=== PATIENT | female | born 1980 | race Caucasian/White ===

== ENCOUNTER → 2016-11-08 | Outpatient (CLI) | payer MEDICAID ==
--- NOTE | 2016-11-08 11:13 | MM ---
Reason for exam: clinical finding. Last mammogram was performed 1 year and 2 months ago. Physical Findings: Nurse Summary: 0.5cm nodule in the right breast at 12 o'clock, 4 o'clock and 9 o'clock, 0.5cm nodule in the left breast at 11 o'clock, 12 o'clock, 1 o'clock and 4 o'clock (nurse kp). MG Diagnostic Mammo w CAD [facility]O Bilateral CC and MLO view(s) were taken. LM view(s) were taken of the right breast. Prior study comparison: August 29, 2015, bilateral MG screening mammo w CAD. The breast tissue is extremely dense which could obscure a lesion on mammography. Finding: There are intermediate concern, suspicious heterogeneous, grouped/clustered calcifications in the outer quadrant, middle position of the right breast, 4 cm from the nipple, seen on CC view only. New finding since August 29, 2015. These results were verbally communicated with the patient and result sheet given to the patient on 11/08/16. ASSESSMENT: Suspicious, BI-RAD 4 RECOMMENDATION: Surgical consultation and stereotactic core biopsy of the right breast. Called Jose with mammographic findings and office will call patient and discuss results and set patient up for procedure/surgical consult. PRELIMINARY REPORT CALLED AND FAXED TO DR. HUNTER ON 11/08/16 AT 1200/TMP.
--- NOTE | 2016-11-08 11:23 | USB ---
Reason for exam: clinical finding. US Breast BILAT Right breast ultrasound includes all four quadrants, the retroareolar region and axilla. Finding demonstrates a 2.6 x 0.6 x 2.3cm at 12 o'clock cystic cluster at 12 o'clock, a 0.9 x 0.9 x 1.0cm cystic lesion at 2 o'clock, a 1.1 x 0.5 x 0.7cm cystic cluster at 3 o'clock, a 4.1 x 0.7 x 3.5cm cystic lesion at 8 o'clock and a 1.2 x 0.6 x 0.9cm cystic lesion at 10 o'clock. Left breast ultrasound includes all four quadrants, the retroareolar region and axilla. Finding demonstrates a 0.6 x 0.5 x 0.6cm cystic lesion at 12 o'clock, a 1.6 x 1.5 x 1.0cm cystic cluster at 12 o'clock, a 1.1 x 0.7 x 0.3cm cystic lesion at 1 o'clock, a 1.2 x 0.5 x 1.1cm cystic lesion at 3 o'clock and a 0.8 x 0.7 x 0.5cm cystic cluster at 9 o'clock. These results were verbally communicated with the patient and result sheet given to the patient on 11/08/16. ASSESSMENT: Incomplete: need additional imaging evaluation, BI-RAD 0 RECOMMENDATION: Follow-up diagnostic mammogram of both breasts.
== END ==
LOC: RADUSWWP 08:13
PROVIDERS: ATTEND Obstetrics & Gynecology
DX: R92.8 Other abnormal and inconclusive findings on diagnostic imaging of breast (principal); R92.2 Inconclusive mammogram
CPT/HCPCS: 76641; G0204

== ENCOUNTER → 2016-12-03 | Day surgery (SDC) | payer MEDICAID ==
--- NOTE | 2016-12-03 16:53 | MM ---
EXAMINATION TYPE: MG discontinued stereo core RT DATE OF EXAM: 12/03/2016 3:07 PM COMPARISON: 08/29/2015 and 11/08/2016 CLINICAL HISTORY: 36-year-old female referred for stereotactic core needle biopsy of right breast angeles rocalcifications. TECHNIQUE: Stereotactic guided core biopsy of the right breast. FINDINGS: The procedure of stereotactic guided core biopsy was explained to the patient. Benefits, a lternatives, and risks were discussed. An informed consent was then obtained. As the calcifications were noted on the cc view, a CC from above approach was utilized, targeting the lateral calcifications at a middle depth. However, multiple windows were utilized but the small group of microcalcifications could not be redem onstrated on the stereotactic table. Interestingly, numerous layering calcifications now became appar ent in this position. Given the smudgy appearance on the original CC view of 11/08/2016, the possibility of benign milk of c alcium is considered. These should be reassessed in 6 months. Biopsy was discontinued at this time. Findings and impression were discussed with the patient. IMPRESSION: BI-RADS 3-probably benign. Right breast lateral grouped calcifications could not be redemonstrated o n the stereotactic table. Many new layering calcifications became apparent on the nipple down CC view . Milk of calcium is a consideration. RECOMMENDATION: 6 month follow-up diagnostic right breast mammogram.
== END ==
LOC: RADMAMWWP 13:21
PROVIDERS: ATTEND Surgery
DX: R92.8 Other abnormal and inconclusive findings on diagnostic imaging of breast (principal); R92.0 Mammographic microcalcification found on diagnostic imaging of breast; R92.1 Mammographic calcification found on diagnostic imaging of breast; Z53.8 Procedure and treatment not carried out for other reasons

== ENCOUNTER → 2018-05-01 | Outpatient (CLI) | payer MEDICAID ==
--- NOTE | 2018-05-02 08:04 | MM ---
Reason for exam: screening (asymptomatic). Last mammogram was performed 10 months ago. History: MG discontinued stereo core RT of the right breast, December 03, 2016. Took hormonal contraceptives beginning at age 16. Physical Findings: A clinical breast exam by your physician is recommended on an annual basis and results should be correlated with mammographic findings. MG 3D Screening Mammo W/Cad Bilateral CC and MLO view(s) were taken. Prior study comparison: July 03, 2017, right breast MG 3d diag mammo w/cad RT. November 08, 2016, bilateral MG diagnostic mammo w CAD [facility]. The breast tissue is extremely dense which could obscure a lesion on mammography. Finding: There are typically benign round calcifications in both breasts. There is a chronic nodularity bilaterally. Increase in size since July 03, 2017 and November 08, 2016. ASSESSMENT: Incomplete: need additional imaging evaluation, BI-RAD 0 RECOMMENDATION: Ultrasound of the left breast. [facility] will attempt to contact patient to return for ultrasound.
== END ==
LOC: RADMAMWWP 07:21
PROVIDERS: ATTEND Obstetrics & Gynecology
DX: Z12.31 Encounter for screening mammogram for malignant neoplasm of breast (principal)
CPT/HCPCS: 77063; 77067

== ENCOUNTER → 2018-05-16 | Outpatient (CLI) | payer MEDICAID ==
--- NOTE | 2018-05-16 10:50 | USB ---
Reason for exam: additional evaluation requested from abnormal screening. History: MG discontinued stereo core RT of the right breast, December 03, 2016. Took hormonal contraceptives beginning at age 16. Physical Findings: Nurse Summary: bilateral cystic clusters, movable, tender 1cm lump left breast 1 o'clock (nurse mj). US Breast Workup Limited LT Left limited breast ultrasound including focal area of concern, retroareolar and axilla demonstrates a 1.1 x 1.2 x 0.7cm oval, cystic lesion at 12 o'clock, a 0.3 x 0.3 x 0.3cm oval, mixed cluster at 1 o'clock, a 0.5 x 0.4 x 0.4cm oval, cystic cluster at 1 o'clock, a 2.0 x 2.8 x 1.0cm oval, cystic lesion at 2 o'clock, a 1.7 x 1.8 x 0.8cm oval, cystic lesion at 3 o'clock and a 0.8 x 0.9 x 0.8cm oval, cystic lesion at 3 o'clock with calcification adjacent or at wall. These results were verbally communicated with the patient and result sheet given to the patient on 05/16/18. ASSESSMENT: Benign, BI-RAD 2 RECOMMENDATION: Return to routine screening mammogram schedule for both breasts. Manage patient on a clinical basis.
== END ==
LOC: RADUSWWP 06:59
PROVIDERS: ATTEND Obstetrics & Gynecology
DX: R92.8 Other abnormal and inconclusive findings on diagnostic imaging of breast (principal)

== ENCOUNTER → 2019-04-03 | Outpatient (CLI) | payer MEDICAID ==
--- NOTE | 2019-04-05 20:20 | XR ---
EXAMINATION TYPE: XR thoracic spine 2V DATE OF EXAM: 04/03/2019 COMPARISON: NONE HISTORY: 38-year-old female with back pain TECHNIQUE: 3 views FINDINGS: 12 rib-bearing thoracic vertebral bodies. All pedicles are visualized. Mild endplate spondylosis midt horacic spine. Vertebral body heights are preserved and alignment is maintained. IMPRESSION: Mild endplate spondylosis midthoracic spine. No vertebral compression collapse or malalignment.
== END | disposition home or self-care (01) ==
LOC: RADXRMAIN 16:37
PROVIDERS: ATTEND Internal Medicine Geriatric Medicine
DX: M47.814 Spondylosis without myelopathy or radiculopathy, thoracic region (principal)
CPT/HCPCS: 72070

== ENCOUNTER → 2021-03-09 | Outpatient (CLI) | payer MEDICAID ==
--- NOTE | 2021-03-09 11:25 | MM ---
Reason for exam: clinical finding. Last mammogram was performed 2 years and 10 months ago. History: MG discontinued stereo core RT of the right breast, December 03, 2016. Took hormonal contraceptives beginning at age 16. Physical Findings: Nurse Summary: 2cm nodule in the right breast at 9 o'clock and 2 o'clock (nurse dw). MG 3D Diag Mammo W/Cad [facility] Bilateral CC and MLO view(s) were taken. Prior study comparison: May 01, 2018, bilateral MG 3d screening mammo w/cad. July 03, 2017, right breast MG 3d diag mammo w/cad RT. The breast tissue is heterogeneously dense. This may lower the sensitivity of mammography. Stable diffuse punctate calcifications bilaterally. Multiple bilateral masses measuring up to 5cm on the left. Medial right 3.0cm mass at the palpable. These results were verbally communicated with the patient and result sheet given to the patient on 03/09/21. ASSESSMENT: Incomplete: need additional imaging evaluation, BI-RAD 0 RECOMMENDATION: Ultrasound of both breasts.
--- NOTE | 2021-03-09 11:27 | USB ---
Reason for exam: additional evaluation requested from abnormal screening. History: MG discontinued stereo core RT of the right breast, December 03, 2016. Took hormonal contraceptives beginning at age 16. US Breast BILAT Right complete breast ultrasound includes all four quadrants, the retroareolar region and axilla. Finding demonstrates a 2.1 x 1.6 x 2.0cm cystic lesion at 2 o'clock, a 2.6 x 1.5 x 2.3cm cystic lesion at 8 o'clock and a 1.3 x 0.7 x 0.9cm cystic cluster at 8 o'clock. Left complete breast ultrasound includes all four quadrants, the retroareolar region and axilla. Finding demonstrates a 2.9 x 1.4 x 3.4cm cystic lesion at 12 o'clock, a 5.1 x 1.7 x 4.8cm cystic lesion at 3 o'clock and a 2.4 x 0.8 x 2.3cm cystic lesion at 11 o'clock. Multiple cystic areas bilaterally. These results were verbally communicated with the patient and result sheet given to the patient on 03/09/21. ASSESSMENT: Probably benign, BI-RAD 3 RECOMMENDATION: Follow-up diagnostic mammogram of both breasts in 1 year.
== END | disposition home or self-care (01) ==
LOC: RADMAMWWP 08:47
PROVIDERS: ATTEND Obstetrics & Gynecology
DX: Z13.820 Encounter for screening for osteoporosis (principal); I25.2 Old myocardial infarction; R92.8 Other abnormal and inconclusive findings on diagnostic imaging of breast; N63.0 Unspecified lump in unspecified breast
CPT/HCPCS: 77062; 77066

== ENCOUNTER → 2021-06-16 | Outpatient (CLI) | payer MEDICAID ==
[2021-06-16 10:16] LABS: Basophils # (A) 0.04 X 10*3/uL (0.00-0.10); Basophils % (A) 0.4 %; Eosinophils # (A) 0.18 X 10*3/uL (0.04-0.35); Eosinophils % (A) 1.9 %; HGB 11.8 g/dL (12.0-15.0); Lymphocytes # (A) 1.25 X 10*3/uL (0.90-5.00); Lymphocytes % (A) 13.4 %; MCH 28.8 pg (27.0-32.0); MCHC 31.9 g/dL (32.0-37.0); MCV 90.2 fL (80.0-97.0); Mean Platelet Volume 10.5 fL (9.5-12.2); Monocytes # (A) 0.98 X 10*3/uL (0.20-1.00); Monocytes % (A) 10.5 %; Neutrophils # (A) 6.84 X 10*3/uL (1.80-7.70); Neutrophils % (A) 73.6 %; Platelet Count 301 X 10*3/uL (140-440); RDW 14.4 % (11.5-14.5); WBC 9.31 X 10*3/uL (4.50-10.00)
[2021-06-16 14:30] LABS: ALT 12 U/L (8-44); AST 13 U/L (13-35); African American GFR (CKD) 105.4 (60.0-200.0); Albumin 4.5 g/dL (3.8-4.9); Albumin/Globulin Ratio 1.88 (1.60-3.17); Alkaline Phosphatase 69 U/L (41-126); BUN/Creat Ratio 18.88 Ratio (12.00-20.00); Blood Urea Nitrogen 15.1 mg/dL (9.0-27.0); Calcium 9.3 mg/dL (8.7-10.3); Carbon Dioxide 24.5 mmol/L (20.0-27.5); Chloride 102 mmol/L (96-109); Globulin 2.4 g/dL (1.6-3.3); Glucose 83 mg/dL (70-110); Non-African American GFR(CKD) 90.9 (60.0-200.0); Potassium 3.7 mmol/L (3.5-5.5); Sodium 136 mmol/L (135-145); Total Protein 6.9 g/dL (6.2-8.2)
[2021-06-16 14:31] LABS: Chol/HDL Ratio 2.15 Ratio; LDL Cholesterol,Calculated 89.5 mg/dL (0.0-131.0); VLDL Calculation 12.58 mg/dL (5.00-40.00)
== END | disposition home or self-care (01) ==
LOC: LABWHC1 07:30
PROVIDERS: ATTEND Internal Medicine Geriatric Medicine
DX: E78.2 Mixed hyperlipidemia (principal); E55.9 Vitamin D deficiency, unspecified; R53.83 Other fatigue; R73.9 Hyperglycemia, unspecified; R10.9 Unspecified abdominal pain
CPT/HCPCS: 36415; 80053; 80061; 82306; 83036; 84439; 84443; 85025

== ENCOUNTER → 2021-06-16 | Outpatient (CLI) | payer MEDICAID ==
--- NOTE | 2021-06-16 09:14 | US ---
EXAMINATION TYPE: US pelvic complete DATE OF EXAM: 06/16/2021 COMPARISON: NONE CLINICAL HISTORY: R10.2 Pelvic pain. TECHNIQUE: Transabdominal (TA). Transabdominal sonographic images of the pelvis were acquired Date of LMP: Irregular EXAM MEASUREMENTS: Uterus: 8.2x6.6x5.1 cm Endometrial Stripe: 1.0 cm Right Ovary: 4.1x2.2x2.3 cm Left Ovary: 3.6x3.3x2.3 cm 1. Uterus: Anteverted 2 fibroids noted Anterior fundal = 1.2x1.4x1.0cm Posterior = 2.1x1.8x1.3cm 2. Endometrium: wnl 3. Right Ovary: wnl 4. Left Ovary: Cyst with septation =2.2x2.8x1.7cm 5. Bilateral Adnexa: wnl 6. Posterior cul-de-sac: trace amount of fluid Heterogeneous anteverted uterus with technologist marking is slightly hypoechoic 1.4 cm lesion in the anterior fundus suspicious for small subserosal fibroid slightly bulging the uterine contour and sli ghtly larger heterogeneous hypoechoic 2.1 cm fibroid in the posterior fundus intramural in location. Poorly visualized endometrial stripe at 10 mm on image saved #4. Trace free fluid cul-de-sac. Both ovaries seen. Left ovary has 2.2 cm slightly irregular thin-walled cyst or cystic lesion with th in septa is not completely anechoic, possible corpus luteal cyst. IMPRESSION: Suboptimal study without transvaginal investigation, small intrauterine fibroids are iden tified.
== END | disposition home or self-care (01) ==
LOC: RADUSWWP 07:05
PROVIDERS: ATTEND Internal Medicine Geriatric Medicine
DX: R10.2 Pelvic and perineal pain (principal)
CPT/HCPCS: 76856

== ENCOUNTER → 2021-08-22 | Outpatient (CLI) | payer MEDICAID ==
--- NOTE | 2021-08-23 07:31 | XR ---
EXAMINATION TYPE: XR chest 2V DATE OF EXAM: 08/22/2021 COMPARISON: 03/21/2015 HISTORY: Chest pain TECHNIQUE: Frontal and lateral views of the chest are obtained. FINDINGS: There is no focal air space opacity. No evidence for pneumothorax. No pleural effusion. The cardiac silhouette size is within normal limits. The osseous structures are grossly intact. IMPRESSION: 1. No acute cardiopulmonary process.
== END | disposition home or self-care (01) ==
LOC: RADXRMAIN 17:27
PROVIDERS: ATTEND Internal Medicine Geriatric Medicine
DX: R06.02 Shortness of breath (principal); R07.9 Chest pain, unspecified
CPT/HCPCS: 71046

== ENCOUNTER → 2021-11-08 | Outpatient (CLI) | payer MEDICAID ==
--- NOTE | 2021-11-08 16:25 | XR ---
Right hip HISTORY: Pain for 2 months 2 views of the right hip, no comparisons Mild concentric joint space loss noted. Question some minimal marginal spurring. Alignment and bone m ineralization maintained. No fracture or dislocation. IMPRESSION: Mild osteoarthritic changes suspected.
--- NOTE | 2021-11-08 16:26 | XR ---
Lumbar spine HISTORY: M 43.26, pain for 2 months 3 views of lumbar spine Surgical clips are present in the right upper quadrant. Lumbar vertebral bodies show preserved height and alignment. Spondylosis is present and mild. This mi ld loss of disc height at intervertebral levels. IMPRESSION: Mild degenerative disc changes. Consider lumbar MRI.
== END | disposition home or self-care (01) ==
LOC: RADXRMAIN 15:31
PROVIDERS: ATTEND Internal Medicine Geriatric Medicine
DX: M25.559 Pain in unspecified hip (principal); M43.26 Fusion of spine, lumbar region
CPT/HCPCS: 72100; 73502

== ENCOUNTER → 2022-07-24 | Outpatient (CLI) | payer MEDICAID ==
--- NOTE | 2022-07-24 08:21 | XR ---
EXAMINATION TYPE: XR chest 2V DATE OF EXAM: 07/24/2022 COMPARISON: Chest x-ray August 22, 2021 HISTORY: Shortness of breath TECHNIQUE: Frontal and lateral views of the chest are obtained. FINDINGS: There is no suspicious focal air space opacity, pleural effusion, or pneumothorax seen. T he cardiac silhouette size is stable and within normal limits. The osseous structures are intact. C holecystectomy clips are redemonstrated. IMPRESSION: No acute cardiopulmonary process. No significant change from prior.
[2022-07-24 14:29] LABS: Basophils # (A) 0.04 X 10*3/uL (0.00-0.10); Basophils % (A) 0.7 %; Eosinophils # (A) 0.15 X 10*3/uL (0.04-0.35); Eosinophils % (A) 2.8 %; HCT 34.4 % (37.2-46.3); HGB 11.1 g/dL (12.0-15.0); Immature Grans, Automated 0.2 %; Lymphocytes # (A) 1.42 X 10*3/uL (0.90-5.00); Lymphocytes % (A) 26.6 %; MCH 28.8 pg (27.0-32.0); MCHC 32.3 g/dL (32.0-37.0); MCV 89.1 fL (80.0-97.0); Mean Platelet Volume 10.4 fL (9.5-12.2); Monocytes # (A) 0.48 X 10*3/uL (0.20-1.00); NRBC Per 100 WBC 0 /100 WBCS (0.0-0.0); Neutrophils # (A) 3.24 X 10*3/uL (1.80-7.70); Neutrophils % (A) 60.7 %; Platelet Count 338 X 10*3/uL (140-440); RBC 3.86 X 10*6/uL (4.10-5.20); RDW 14.1 % (11.5-14.5); WBC 5.34 X 10*3/uL (4.50-10.00)
[2022-07-24 14:53] LABS: ALT 10 U/L (8-44); AST 16 U/L (13-35); African American GFR (CKD) 108.9 (60.0-200.0); Albumin 4.3 g/dL (3.8-4.9); Albumin/Globulin Ratio 1.63 (1.60-3.17); Alkaline Phosphatase 68 U/L (41-126); BUN/Creat Ratio 14.47 Ratio (12.00-20.00); Blood Urea Nitrogen 11.2 mg/dL (9.0-27.0); Calcium 9.4 mg/dL (8.7-10.3); Carbon Dioxide 24.2 mmol/L (20.0-27.5); Chloride 104 mmol/L (96-109); Chol/HDL Ratio 2.73 Ratio; Globulin 2.7 g/dL (1.6-3.3); Glucose 84 mg/dL (70-110); LDL Cholesterol,Calculated 100.9 mg/dL (0.0-131.0); Potassium 4.2 mmol/L (3.5-5.5); Sodium 140 mmol/L (135-145); Total Bilirubin <0.15 mg/dL (0.30-1.20); VLDL Calculation 17.56 mg/dL (5.00-40.00)
== END | disposition home or self-care (01) ==
LOC: LABWHC1 07:08
PROVIDERS: ATTEND Internal Medicine Geriatric Medicine
DX: E78.2 Mixed hyperlipidemia (principal); R73.9 Hyperglycemia, unspecified; R06.02 Shortness of breath; R53.83 Other fatigue
CPT/HCPCS: 36415; 71046; 80053; 80061; 83036; 84443; 85025

== ENCOUNTER → 2022-10-15 | Outpatient (CLI) | payer MEDICAID ==
--- NOTE | 2022-10-15 07:30 | MM ---
Reason for Exam: Additional evaluation requested from prior study. Last mammogram was performed 1 year(s) and 7 month(s) ago. Patient History: Menarche at age 10. First Full-Term at age 12. Premenopausal. Patient has history of breast feeding. Currently using Hormonal Contraceptives, starting at age 16. 12/03/2016, MG discontinued stereo core RT on the right side. Last menstrual period: 09/26/2022 Risk Values: Madalyn 5 year model risk: 0.6%. NCI Lifetime model risk: 7.1%. Prior Study Comparison: 08/29/2015 Bilateral Screening Mammogram, [facility]. 11/08/2016 Bilateral Diagnostic Mammogram, [facility]. 07/03/2017 Right Diagnostic Mammogram, [facility]. 05/01/2018 Bilateral Screening Mammogram, [facility]. 03/09/2021 Bilateral Diagnostic Mammogram, [facility]. Tissue Density: The breast tissue is extremely dense which could obscure a lesion on mammography. Findings: Analyzed By CAD. Scattered calcifications are seen bilaterally unchanged from prior study. Masslike areas left breast which have been proven to reflect cysts previously persist although appear smaller in size. No evidence for distortion. Overall Assessment: Benign, BI-RAD 2 Management: Screening Mammogram of both breasts in 1 year. A clinical breast exam by your physician is recommended on an annual basis and results should be correlated with mammographic findings. This exam should not preclude additional follow-up of suspicious palpable abnormalities. Results were given to the patient verbally at the time of exam. Electronically signed and approved by: Marc Alvarado M.D. Radiologis
== END | disposition home or self-care (01) ==
LOC: RADMAMWWP 06:49
PROVIDERS: ATTEND Obstetrics & Gynecology
DX: Z12.31 Encounter for screening mammogram for malignant neoplasm of breast (principal); Z80.3 Family history of malignant neoplasm of breast; R92.1 Mammographic calcification found on diagnostic imaging of breast
CPT/HCPCS: 77062; 77066

== ENCOUNTER → 2022-12-24 | Outpatient (CLI) | payer MEDICAID ==
--- NOTE | 2022-12-25 06:50 | US ---
EXAMINATION TYPE: US transvaginal DATE OF EXAM: 12/24/2022 COMPARISON: 06/16/2021 CLINICAL INDICATION: Female, 42 years old with history of N92.0 MENORRHAGIA; Heavy painful periods x couple years TECHNIQUE: Transvaginal only per patient's order Date of LMP: 12/16/2022 EXAM MEASUREMENTS: Uterus: 9.5 x 5.1 x 6.1 cm Endometrial Stripe: 1.4 cm Right Ovary: 2.9 x 2.2 x 2.5 cm Left Ovary: not seen 1. Uterus: Anteverted. Myometrium shows mild diffuse heterogeneity with a 3.1 x 2.0 x 2.6cm hypoecho ic area posterior lower uterine segment towards the left. This appears primarily intramural. Small 6 mm cervical nabothian cyst. A smaller fibroid along the anterior uterine body previously seen is not currently identified. 2. Endometrium: thickened for patient's cycle 3. Right Ovary: Follicular change with a 1.9cm dominant follicle 4. Left Ovary: not seen 5. Bilateral Adnexa: wnl 6. Posterior cul-de-sac: wnl IMPRESSION: 1. Heterogeneous myometrium suggests diffuse small fibroid change or adenomyosis. 2. A dominant 3.1 cm primarily intramural fibroid along the left posterior lower uterine segment. 3. The endometrial stripe is thickened for the patient's cycle and 1.4 cm. This thickness generally c orresponds to the secretory phase of the menstrual cycle. Consider follow-up to reassess. 4. Follicular change of the right ovary with a 1.9 cm dominant follicle.
== END | disposition home or self-care (01) ==
LOC: RADUSWWP 16:37
PROVIDERS: ATTEND Obstetrics & Gynecology
DX: D25.1 Intramural leiomyoma of uterus (principal); N83.01 Follicular cyst of right ovary; N92.0 Excessive and frequent menstruation with regular cycle
CPT/HCPCS: 76830

== ENCOUNTER → 2023-05-22 | Outpatient (CLI) | payer MEDICAID ==
[2023-05-22 10:59] LABS: Basophils # (A) 0.03 X 10*3/uL (0.00-0.10); Basophils % (A) 0.4 %; Eosinophils # (A) 0.08 X 10*3/uL (0.04-0.35); Eosinophils % (A) 1.2 %; HCT 36.1 % (37.2-46.3); HGB 11.6 d/dL (12.0-15.0); Lymphocytes # (A) 1.45 X 10*3/uL (0.90-5.00); Lymphocytes % (A) 20.9 %; MCH 27.2 pg (27.0-32.0); MCHC 32.1 d/dL (32.0-37.0); MCV 84.5 FL (80.0-97.0); Mean Platelet Volume 10.3 FL (9.5-12.2); Monocytes # (A) 0.63 X 10*3/uL (0.20-1.00); Monocytes % (A) 9.1 %; NRBC Per 100 WBC 0 X 10*3/uL (0.00-0.01); Neutrophils # (A) 4.75 X 10*3/uL (1.80-7.70); Neutrophils % (A) 68.3 %; Platelet Count 381 X 10*3/uL (140-440); RBC 4.27 X 10*6/uL (4.10-5.20); RDW 15.6 % (11.5-14.5); WBC 6.95 X 10*3/uL (4.50-10.00)
[2023-05-22 16:16] LABS: Blood Urea Nitrogen 10.3 mg/dL (9.0-27.0); Carbon Dioxide 24.7 mmol/L (21.6-31.8); Chloride 99 mmol/L (96-109); Glucose 99 mg/dL (70-110); Potassium 4.2 mmol/L (3.5-5.5); Sodium 135 mmol/L (135-145)
[2023-05-22 16:18] LABS: Appearance,Urine Clear (Clear); Bilirubin,Urine Negative (Negative); Blood,Urine Negative (Negative); Color,Urine Yellow (Yellow); Ketones,Urine Negative (Negative); Nitrite,Urine Negative (Negative); Specific Gravity,Urine 1.012 (1.001-1.030); Urobilinogen,Urine 0.2 E.U./DL
[2023-05-22 16:25] LABS: Bacteria,Urine 1+ (None Seen)
== END | disposition home or self-care (01) ==
LOC: LABPAT 08:33
PROVIDERS: ATTEND Obstetrics & Gynecology Obstetrics
DX: Z01.812 Encounter for preprocedural laboratory examination (principal); N92.0 Excessive and frequent menstruation with regular cycle; D25.9 Leiomyoma of uterus, unspecified; N94.6 Dysmenorrhea, unspecified
CPT/HCPCS: 80051; 81001; 82565; 82947; 84520; 85025; 86850; 86900; 86901

== ENCOUNTER 2023-05-28 05:45 | Day surgery (SDC) | payer MEDICAID ==
[2023-05-23 11:28] VITALS: BMI 26.6
[2023-05-28] MEDS ORDERED: LACTATED RINGERS 1,000 ML IV SCH (05:54)
[2023-05-28] MEDS ORDERED: LIDOCAINE 1% (10MG/ML) FOR IV START INTRADERMA PRN (05:54)
[2023-05-28] MEDS ORDERED: DEXAMETHASONE SOD PHOSPHATE 4 MG/ML 1 ML VIAL IV ONE (05:54)
[2023-05-28] MEDS ORDERED: ONDANSETRON 4 MG/2 ML VIAL IVP ONE (05:54)
[2023-05-28] MEDS ORDERED: SCOPOLAMINE 1 MG/72 HR PATCH TRANSDERM ONE (06:57)
[2023-05-28] MEDS ORDERED: fentaNYL (PF) 50 MCG/ML 2 ML AMP IV PRN (07:00)
[2023-05-28] MEDS ORDERED: fentaNYL (PF) 50 MCG/ML 2 ML AMP ONE (07:25)
[2023-05-28] MEDS ORDERED: MIDAZOLAM 2 MG/2 ML VIAL ONE (07:25)
[2023-05-28] MEDS ORDERED: LABETALOL 5 MG/ML VIAL MDV ONE (07:25)
[2023-05-28] MEDS ORDERED: HYDROmorphone (PF) 1 MG/ML ONE (07:25)
[2023-05-28] MEDS ORDERED: GLYCOPYRROLATE 0.2 MG/ML 2 ML VIAL ONE (07:25)
[2023-05-28] MEDS ORDERED: PROPOFOL 10 MG/ML 20 ML VIAL IV ONE (07:25)
[2023-05-28] MEDS ORDERED: SUCCINYLCHOLINE CHLORIDE 200 MG/10 ML VIAL IV ONE (07:25)
[2023-05-28] MEDS ORDERED: ROCURONIUM 10 MG/ML (5 ML VIAL) IV ONE (07:25)
[2023-05-28] MEDS ORDERED: PHENYLEPHRINE 10 MG/ML 5 ML VIAL ONE (07:25)
[2023-05-28] MEDS ORDERED: LIDOCAINE 1% INJ 10MG/ML (20 ML MDV) ONE (07:25)
[2023-05-28] MEDS ORDERED: NEOSTIGMINE 1 MG/ML 10 ML VIAL ONE (07:25)
--- NOTE | 2023-05-28 07:36 | P.HPOB ---
History of Present Illness H&P Date: 05/28/23 Chief Complaint: Menorrhagia, pelvic pain, fibroid uterus This is a 42-year-old 4 para 4 that presents for scheduled robotic cyst vaginal hysterotomy with bilateral salpingectomy, diagnostic cystoscopy. Patient has noted heavy menstrual cycles. An ultrasound slightly enlarged uterus was noted at 10 cm with a 3 cm posterior uterine fibroid. Given these findings patient elected definitive treatment. 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 Menstrual cycles are noted to be regular with heavy flow and clots. Patient does have a history of a LEEP, many years ago and BEKA-1 in 2018. Review of Systems Constitutional: Denies chills, Denies fatigue, Denies fever Ears, nose, mouth and throat: Denies headache Cardiovascular: Denies leg edema Gastrointestinal: Denies constipation, Denies diarrhea, Denies nausea, Denies vomiting Genitourinary: Reports dysmenorrhea, Reports menorrhagia, Denies Past Medical History Additional Past Medical History / Comment(s): HEAVY, PAINFUL MENSES, FIBROIDS History of Any Multi-Drug Resistant Organisms: None Reported Past Surgical History: Cholecystectomy, Tubal Ligation Past Anesthesia/Blood Transfusion Reactions: Postoperative Nausea & Vomiting (PONV) Smoking Status: Current every day smoker, Vaper - Past Family History Mother Family Medical History: Cancer Medications and Allergies Home Medications Medication Instructions Recorded Confirmed Type Phentermine HCl [Adipex-P] 37.5 mg PO DAILY 05/23/23 05/23/23 History Cetirizine HCl [Zyrtec] 10 mg PO DAILY 05/28/23 05/28/23 History Allergies Allergy/AdvReac Type Severity Reaction Status Date / Time meperidine [From Demerol] Allergy Rash/Hives Verified 05/28/23 06:19 Exam Osteopathic Statement: *. No significant issues noted on an osteopathic structural exam other than those noted in the History and Physical/Consult. Vital Signs Temp Pulse Resp BP Pulse Ox 05/28/23 06:31 97.7 F 88 18 144/96 99 Intake and Output 05/27/23 05/28/23 05/28/23 22:59 06:59 14:59 Other: Weight 74 kg Targeted physical exam is performed in this date and nursing clinical director a well-nourished well-developed non female in no acute distress, breathing is noted to be nonlabored, heart has a regular rate and rhythm, abdomen is soft and nontender on genitourinary exam external genitalia is noted to be normal for age vaginal mucosa is noted to be pink and well rugated the cervix is without lesion the uterus is noted to be slightly enlarged with no adnexal masses appreciated. Uterus is mobile in nature. Assessment and Plan (1) Menorrhagia Current Visit: Yes Status: Acute Code(s): N92.0 - EXCESSIVE AND FREQUENT MENSTRUATION WITH REGULAR CYCLE SNOMED Code(s): 879130946 (2) Uterine fibroid Current Visit: Yes Status: Acute Code(s): D25.9 - LEIOMYOMA OF UTERUS, UNSPECIFIED SNOMED Code(s): 25332949 (3) Pelvic pain Current Visit: Yes Status: Acute Code(s): R10.2 - PELVIC AND PERINEAL PAIN SNOMED Code(s): 30964729 Plan: 42-year-old female presents for robotic cyst vaginal hysterectomy with bilateral lateral salpingectomy, diagnostic cystoscopy. Patient has been struggling with heavy menstrual bleeding, dysmenorrhea/pelvic pain on ultrasound revealing uterine fibroids. Patient elects definitive treatment. Surgery is reviewed in detail and risks are discussed. Risks are reviewed including but not limited to infection, bleeding, damage to bladder, bowel, ureteric injury. Patient states understanding and wishes to proceed.
[2023-05-28] MEDS ORDERED: BUPIVACAINE (PF) 0.5% 30 ML VIAL SQ ONE (08:01)
[2023-05-28] MEDS ORDERED: ONDANSETRON 4 MG/2 ML VIAL IVP PRN (09:07)
[2023-05-28] MEDS ORDERED: SIMETHICONE 80 MG CHEWABLE PO PRN (09:07)
[2023-05-28] MEDS ORDERED: Acetaminophen-Codeine 300-30mg TAB PO PRN (09:07)
--- NOTE | 2023-05-28 09:21 | P.OP ---
Date of Procedure: 05/28/23 Preoperative Diagnosis: Menorrhagia, fibroid uterus, pelvic pain/dysmenorrhea Postoperative Diagnosis: Same Procedure(s) Performed: Robotic cyst vaginal hysterotomy, bilateral salpingectomy, diagnostic cystoscopy Anesthesia: STEPHANIE Surgeon: Bonnie Evans Supervisor [employer] #1: Aspen Quintero Estimated Blood Loss (ml): 50 IV fluids (ml): 550 Urine output (ml): 80 Pathology: other (Uterus, bilateral fallopian tubes, cervix) Condition: stable Disposition: PACU Indications for Procedure: Heavy menstrual bleeding, dysmenorrhea ultrasound revealing uterine fibroid Operative Findings: Globular uterus with anterior fibroid Description of Procedure: Patient was taken back to the operating suite where general anesthesia was obtained without difficulty by the anesthesia department. She was prepped and draped in normal sterile fashion in the dorsal lithotomy position. Fully catheter was placed under sterile technique. A weighted speculum was placed in the posterior vaginal vault the anterior lip the cervix was visualized and grasped with a single-tooth tenaculum. Endocervical canal was then serially dilated. A [employer] care uterine miniplate was advanced into the uterus as a means to manipulate the uterus throughout the procedure. The balloon was insufflated with air and all instrument were removed from the patient's vaginal vault. Attention was then turned to the patient's abdomen where approximately 2 finger breaths above the umbilicus a small skin incision is made, through this incision the Veress needles placed. Once the Veress needle was deemed to be in the proper position with a drop of CO2 pressure with insufflation of CO2 gas CO2 insufflation was allowed to occur. 3 L of gas or used to obtain pneumoperitoneum. At this time the 8 mm trocar and sleeve is placed under direct visualization with an laparoscope in place. The above-noted findings are visualized. At this time the additional port sites are placed 10 cm lateral and 3 cm inferior to midline port these are 8 mm ports and placed under direct visualization. In the left upper quadrant 12 mm skin incision is made and a 12 mm trocar and sleeve is placed under direct visuali zation. The da Yoav robot was undocked in the usual fashion and operative arms are now placed. In the right operative arm the monopolar scissors is placed in the left operative arm the bipolar forceps is placed. Attention was then turned to the patient's left fallopian tube which was elevated and mesosalpinx was coagulated and transected. Just prior to this the colon was noted to be adherent to the pelvic sidewall this was released freely with filmy adhesions appreciated. Hemostasis was noted. Once the fallopian tube was noted to be free was taken out of the sound assistant port. The uterine ovarian ligament was then visualized coagulated distally and proximal plane divided. The round ligament was visualized coagulated distally approximately divided. The bladder flap from the left was then created using sharp and blunt dissection. The ascending branch of the uterine artery was visualized regulated and transected. Attention then turned to the patient's right fallopian tube which was elevated and the mesosalpinx was coagulated and transected. Once the tube was free to the site of the prep tubal ligation site it was removed through the sound assistant port. The uterine ovarian ligament was coagulated distally proximal plane divided. The round ligament was visualized coagulated and transected. The bladder flap from the left was then created using sharp and blunt dissection. The ascending branch the uterine artery from the left was visualized coagulated and transected. At this time a Ray-Shaquille was advanced into the abdomen as a means to dissect the bladder further away from the operating field. After complete the Ray-Shaquille was removed. At this point the only remaining attachment was a vaginal attachment therefore colpotomy incision was made and circumference of fashion. The uterus was delivered through the vaginal opening. Bleeding was noted on the right lateral edge therefore cautery was used to obtain hemostasis. The pelvis then copiously irrigated. The vaginal cuff was closed with 0 Vicryl in a [id number] fashion present 5 sutures were used to obtain hemostasis. The pelvis was then irrigated after closure. Surgicel powder was placed along the vaginal cuff. Hemostasis was appreciated. All instruments were removed from the patient's abdomen at this point and the da Yoav was undocked in usual fashion. Attention was then turned the patient's Gibson catheter which was noted to be draining clear yellow urine. The catheter was removed and a cystoscope was performed. The cystoscope was placed through the urethra and toward the bladder bladder bubbles appreciated complete survey of the bladder mucosa revealed an intact cavity. Both ureteral orifices were noted be spilling clear yellow urine. The cystoscope was removed and the Gibson catheter was replaced. The vaginal vault was cleared of any clots and hemostasis was appreciated. Attention was then turned the patient's abdomen where the skin incisions were closed with 4-0 Vicryl in a subarticular fashion. Steri-Strips and sterile dressings were applied. All counts were correct 2 at the unit the procedure. Patient tolerated procedure well and was taken the recovery room awake in stable condition.
[2023-05-28 10:43] VITALS: RESP 16
[2023-05-28] MEDS ORDERED: ACETAMINOPHEN IV (For NPO) 1,000 MG in EMPTY BAG 1 BAG IVPB ONE (10:45)
[2023-05-28] MEDS: IBUPROFEN 600 MG TAB PO PRN ×2 (11:04→17:53)
[2023-05-28] MEDS: Acetaminophen-Codeine 300-30mg TAB PO PRN ×2 (15:19→20:37)
[2023-05-28] MEDS: SENNOSIDES-DOCUSATE SODIUM 1 EACH TAB PO SCH (20:33)
[2023-05-29] MEDS: IBUPROFEN 600 MG TAB PO PRN ×2 (01:39→07:53)
[2023-05-29] MEDS: Acetaminophen-Codeine 300-30mg TAB PO PRN (05:03)
[2023-05-29 07:23] LABS: Basophils % (A) 0 %; Eosinophils # (A) 0.2 k/uL (0-0.7); Eosinophils % (A) 2 %; HCT 31.9 % (34.0-46.0); HGB 10.3 gm/dL (11.4-16.0); Hypochromasia Slight; Lymphocytes % (A) 23 %; MCHC 32.2 g/dL (31.0-37.0); MCV 86.9 fL (80.0-100.0); Mean Platelet Volume 7.6; Monocytes # (A) 0.6 k/uL (0-1.0); Monocytes % (A) 6 %; Neutrophils # (A) 5.8 k/uL (1.3-7.7); Neutrophils % (A) 67 %; Platelet Count 273 k/uL (150-450); RBC 3.67 m/uL (3.80-5.40); RDW 14.7 % (11.5-15.5); WBC 8.7 k/uL (3.8-10.6)
[2023-05-29 08:12] VITALS: BP 117/83; PULSE 82; TEMP 98.5
[2023-05-29] MEDS: SENNOSIDES-DOCUSATE SODIUM 1 EACH TAB PO SCH (11:33)
--- NOTE | 2023-05-29 12:11 | P.DS ---
Providers Date of admission: 05/28/2023 Expected date of discharge: 05/29/23 Attending physician: Bonnie Evans Primary care physician: Ruperto Estrada - Discharge Diagnosis(es) (1) Menorrhagia Current Visit: Yes Status: Acute (2) Uterine fibroid Current Visit: Yes Status: Acute (3) Pelvic pain Current Visit: Yes Status: Acute (4) S/P hysterectomy Current Visit: Yes Status: Acute Hospital Course: This is a 42-year-old female that presented for robotic cyst vaginal hysterectomy secondary to uterine fibroids, appendectomy menstrual bleeding. Patient elected definitive treatment. For full details on this patient please see the dictated history and physical. Patient was taken back to the operating room where robotic-assisted vaginal hysterectomy was completed without difficulty for full details on the procedure please see the operative report. Patient's postoperative course has been uneventful. On this postoperative day #1 she is ambulating and voiding without difficulty. She states her pain is well-controlled with oral ibuprofen and Tylenol. She denies vaginal bleeding. She denies nausea or vomiting is tolerating a regular diet. She does desire discharge home. Patient Condition at Discharge: Good Plan - Discharge Summary Discharge Rx Participant: Yes New Discharge Prescriptions: No Action Phentermine HCl [Adipex-P] 37.5 mg PO DAILY Cetirizine HCl [Zyrtec] 10 mg PO DAILY Discharge Medication List Phentermine HCl [Adipex-P] 37.5 mg PO DAILY 05/23/23 [History] Cetirizine HCl [Zyrtec] 10 mg PO DAILY 05/28/23 [History] Follow up Appointment(s)/Referral(s): Bonnie Evans DO [Doctor of Osteopathic Medicine] - 2 Weeks Patient Instructions/Handouts: Laparoscopic Hysterectomy (DC), Laparoscopic Hysterectomy (GEN) Activity/Diet/Wound Care/Special Instructions: No tub baths or intercourse until 6-8 weeks postoperatively. [id number] ibuprofen and Tylenol as needed for pain. Patient can expect light vaginal bleeding post procedure. Patient is to call the office and make an appointment for routine postoperative check in 2 weeks. Discharge Disposition: HOME SELF-CARE
[2023-05-29] MEDS ORDERED: ACETAMINOPHEN TAB 325 MG TAB PO PRN (15:04)
== END 2023-05-29 12:26 | disposition home or self-care (01) ==
LOC: OR 05:45 → 4FBP 09:25 → OR 05-29 12:26
PROVIDERS: ATTEND Obstetrics & Gynecology Obstetrics
DX: N92.0 Excessive and frequent menstruation with regular cycle (principal); D25.9 Leiomyoma of uterus, unspecified; N94.6 Dysmenorrhea, unspecified; F17.200 Nicotine dependence, unspecified, uncomplicated; Z90.49 Acquired absence of other specified parts of digestive tract; Z88.5 Allergy status to narcotic agent; Z98.890 Other specified postprocedural states; Z79.899 Other long term (current) drug therapy
CPT/HCPCS: 58552; S2900; 81025; 85025; 88307

== ENCOUNTER → 2024-10-30 | Outpatient (CLI) | payer MEDICAID ==
[2024-10-30 15:16] LABS: Basophils # (A) 0.05 X 10*3/uL (0.00-0.10); Eosinophils # (A) 0.07 X 10*3/uL (0.04-0.35); Eosinophils % (A) 1.4 %; HCT 39.2 % (37.2-46.3); Lymphocytes # (A) 1.36 X 10*3/uL (0.90-5.00); Lymphocytes % (A) 26.7 %; MCH 31.8 pg (27.0-32.0); MCHC 33.2 g/dL (32.0-37.0); MCV 95.8 FL (80.0-97.0); Mean Platelet Volume 10.5 FL (9.5-12.2); Monocytes # (A) 0.47 X 10*3/uL (0.20-1.00); Monocytes % (A) 9.2 %; NRBC Per 100 WBC 0 X 10*3/uL (0.00-0.01); Neutrophils # (A) 3.13 X 10*3/uL (1.80-7.70); Neutrophils % (A) 61.5 %; Platelet Count 267 X 10*3/uL (140-440); RBC 4.09 X 10*6/uL (4.10-5.20); RDW 12.4 % (11.5-14.5); WBC 5.09 X 10*3/uL (4.50-10.00)
[2024-10-30 15:51] LABS: ALT 18 U/L (8-44); AST 19 U/L (13-35); Albumin 4.3 g/dL (3.8-4.9); Albumin/Globulin Ratio 1.87 Ratio (1.60-3.17); Alkaline Phosphatase 66 U/L (41-126); BUN/Creat Ratio 14.86 Ratio (12.00-20.00); Blood Urea Nitrogen 10.4 mg/dL (9.0-27.0); Calcium 9.4 mg/dL (8.7-10.3); Carbon Dioxide 24.6 mmol/L (21.6-31.8); Chloride 104 mmol/L (96-109); Globulin 2.3 g/dL (1.6-3.3); Glucose 93 mg/dL (70-110); Potassium 4.2 mmol/L (3.5-5.5); Sodium 139 mmol/L (135-145); Total Bilirubin 0.3 mg/dL (0.3-1.2); Total Protein 6.6 g/dL (6.2-8.2); VLDL Calculation 17.38 mg/dL (5.00-40.00)
== END | disposition home or self-care (01) ==
LOC: LABWHC1 07:52
PROVIDERS: ATTEND Internal Medicine Geriatric Medicine
DX: E78.2 Mixed hyperlipidemia (principal); E55.9 Vitamin D deficiency, unspecified; D64.9 Anemia, unspecified; R73.9 Hyperglycemia, unspecified; R00.2 Palpitations
CPT/HCPCS: 36415; 80053; 80061; 82306; 83036; 84443; 85025